=== PATIENT | female | born 1945 | race Native Hawaiian/Other Pacific Islander ===

== ENCOUNTER 2016-04-19 07:35 | Outpatient (CLI) | payer OTHER ==
[~2016-04-19 07:35] MED LIST: DULO30CA OR; LEVO0.1519 PO; LISI20TA11 PO; NABUMETONE500 MG OR; SIMV40TA57; [UNRECOGNIZED DRUG - OTHER] PO
== END 2016-04-19 19:25 | disposition home or self-care (01) ==
LOC: LABW 07:35
PROVIDERS: Nurse Practitioner Adult Health
DX: I25.10 Atherosclerotic heart disease of native coronary artery without angina pectoris (principal); E78.2 Mixed hyperlipidemia; Z79.899 Other long term (current) drug therapy; Z51.81 Encounter for therapeutic drug level monitoring
CPT/HCPCS: 36415; 80061; 80076